=== PATIENT | male | born 1930 | race Caucasian/White ===

== ENCOUNTER 2017-05-09 14:43 | Observation (INO) | payer MEDICARE ==
[~2017-05-09] VITALS: Ht 167.6 cm; Wt 85.8 kg
[2017-05-09] MEDS ORDERED: SODIUM CHLORIDE 0.9% 1000ML 1,000 ML IV STA (15:11)
[2017-05-09 15:37] LABS: BASOPHILS % 0.2 % (0.0-1.0); EOSINOPHILS % 0.2 % (0.0-6.0); HEMATOCRIT 36.2 % (38.2-49.6); HEMOGLOBIN 12.6 g/dL (14.0-18.0); LYMPHOCYTES # (AUTO) 0.9 (1.0-3.2); LYMPHOCYTES % 18.2 % (18.0-39.1); MEAN CORPUSCULAR HGB CONC 34.8 g/dL (31-35); MEAN CORPUSCULAR VOLUME 88.9 fL (81-99); MONOCYTES # (AUTO) 0.5 (0.2-0.8); MONOCYTES % 10.6 % (4.4-11.3); NEUTROPHILS # (AUTO) 3.6 (2.1-6.9); NEUTROPHILS % 70.2 % (38.7-80.0); PLATELET COUNT 222 x10e3/uL (140-360); RED BLOOD COUNT 4.07 x10e6/uL (4.3-5.7); RED CELL DISTRIBUTION WIDTH 14.1 % (11.7-14.4)
[2017-05-09 15:47] LABS: INR 0.87; PROTHROMBIN TIME 12.3 seconds (11.9-14.5)
[2017-05-09 15:48] LABS: PARTIAL THROMBOPLASTIN TIME 37.5 seconds (23.8-35.5)
--- NOTE | 2017-05-09 15:56 | Diagnostic Imaging Report ---
EXAM: XR CHEST 1 VIEW DATE: 05/09/2017 3:11 PM INDICATION: Cough COMPARISON: None FINDINGS: Lines and Tubes: None Heart and Mediastinum: Aortic vascular calcifications. Hilar fullness. Tortuosity descending thoracic aorta. Lungs and Pleura: Patchy opacities lung bases. Apical scarring. Bones and Soft Tissues: No acute findings. IMPRESSION: 1. Asymmetric to left basilar opacities could represent atelectasis or pneumonia. 2. Hilar prominence which could represent adenopathy or prominent pulmonary arteries. Follow-up radiograph after resolution of acute symptoms. CT could be obtained for further evaluation if needed. Signed by: Dr. Tadeo Benítez MD on 05/09/2017 3:53 PM
[2017-05-09 15:57] LABS: ALBUMIN 2.9 g/dL (3.5-5.0); ALBUMIN/GLOBULIN RATIO 0.7 (0.8-2.0); ANION GAP 16.2 mmol/L (8-16); CALCIUM 8.8 mg/dL (8.4-10.2); CREATININE, SERUM 1.68 mg/dL (0.72-1.25); POTASSIUM 4.2 mmol/L (3.5-5.1)
[2017-05-09 16:04] LABS: CREATINE KINASE MB 2.4 ng/mL (0.00-5.00); TROPONIN I 0.013 ng/mL (0-0.300)
--- NOTE | 2017-05-09 16:10 | Diagnostic Imaging Report ---
EXAMINATION: Head CT HISTORY: Status post fall, head trauma, laceration to the left temporal region COMPARISON: None. TECHNIQUE: Multidetector axial images were obtained without contrast from the foramen magnum to the vertex . The images were reconstructed using brain and bone algorithms. Thin section brain images were reformatted into coronal and sagittal planes. Intravenous contrast: None. Motion/streaking artifact limits the evaluation of the skull base and posterior cranial fossa. FINDINGS: Parenchyma: 1. Asymmetry of the insula, with mild volume loss on the left insula and possible cortical/subcortical encephalomalacia/gliosis, perhaps sequela from remote insult such as trauma, ischemia or inflammation, versus a variation of the anatomy. 2. No mass or hemorrhage. No CT evidence of acute territorial vascular insult. Extra-axial spaces:No abnormal density. No extra-axial fluid collections Brain volume: Normal for age. Ventricles: No hydrocephalus or displacement. Arteries: No density suggestive of thrombus. Dural sinuses: No abnormal density. Extra-axial spaces: No abnormal density. Foramen magnum: No mass, Chiari malformation, or basilar invagination. Sella: No obvious mass. Paranasal/mastoid sinuses: Mucosal inflammatory thickening and partial opacification with a small air-fluid levels in the left greater than right sphenoid sinuses. Mild mucosal inflammatory thickening of the bilateral ethmoidal and partially visualized maxillary sinuses. Skull/Scalp: No lytic or blastic lesions. No fractures. IMPRESSION: 1. No acute posttraumatic intracranial abnormalities, particularly no hemorrhage. 2. No acute displaced fractures. 3. Partially visualized mucosal inflammatory thickening of the paranasal sinuses. Signed by: Dr. Inessa Boykin M.D. on 05/09/2017 4:06 PM
[2017-05-09] MEDS ORDERED: MORPHINE SULFATE 2 MG/ML SYR IV STA (16:44)
[2017-05-09] MEDS ORDERED: ONDANSETRON HCL INJ 2 MG/ML VIAL IV STA (16:44)
[2017-05-09 18:07] LABS: BILIRUBIN,URINE NEGATIVE (NEGATIVE); CLARITY,URINE SL CLOUDY (CLEAR); COLOR,URINE RED (YELLOW); KETONES,URINE NEGATIVE (NEGATIVE); LEUKOCYTE ESTERASE ,URINE 2+ (NEGATIVE); NITRITE,URINE NEGATIVE (NEGATIVE); PROTEIN,URINE DIPSTICK 1+ (NEGATIVE); URINE UROBILINOGEN 0.2 mg/dL (0.2 - 1)
[2017-05-09 18:14] LABS: BACTERIA,URINE RARE /HPF; EPITHELIAL CELLS,URINE FEW /LPF; RBC,URINE >50 /HPF (0-5)
[2017-05-09 18:15] LABS: AMORPHOUS SEDIMENT,URINE MODERATE (FEW)
[2017-05-09] MEDS ORDERED: CEFTRIAXONE SOD 1 GM VIAL IV ONE (18:30)
[2017-05-09] MEDS ORDERED: ONDANSETRON HCL INJ 2 MG/ML VIAL IV PRN (18:45)
[2017-05-09] MEDS ORDERED: CEFTRIAXONE SOD 1 GM VIAL IV SCH (18:45)
[2017-05-09] MEDS: SODIUM CHLORIDE 0.9% 1000ML 1,000 ML IV SCH (19:18)
[2017-05-09] MEDS: MORPHINE SULFATE 2 MG/ML SYR IV PRN (21:20)
[2017-05-09 23:26] LABS: CREATINE KINASE MB 2.7 ng/mL (0.00-5.00); TROPONIN I 0.015 ng/mL (0-0.300)
[2017-05-10 02:06] VITALS: BP 150/70
[2017-05-10] MEDS: SODIUM CHLORIDE 0.9% 1000ML 1,000 ML IV SCH (02:47)
[2017-05-10] MEDS ORDERED: DEXTROSE 50% SYRINGE 50 ML IV ONE (02:47)
[2017-05-10] MEDS ORDERED: DEXTROSE 50% SYRINGE 50 ML IV STA (02:52)
[2017-05-10] MEDS ORDERED: DEXTROSE 5%/0.45% SOD CHL 1,000 ML IV SCH (03:00)
[2017-05-10 04:00] VITALS: BP 150/73
[2017-05-10 04:22] VITALS: BP 150/70
[2017-05-10] MEDS: MORPHINE SULFATE 2 MG/ML SYR IV PRN (05:12)
[2017-05-10] MEDS ORDERED: ACETAMINOPHEN 325 MG TAB PO PRN (05:45)
[2017-05-10] MEDS ORDERED: LEVOFLOXACIN 500MG/D5W 100ML 100 ML IV ONE (06:00)
--- NOTE | 2017-05-10 06:33 | Diagnostic Imaging Report ---
EXAM: CHEST SINGLE (PORTABLE), AP 1 view DATE: 05/10/2017 7:00 AM Time stamp on exam: 0624 hours INDICATION: Pneumonia COMPARISON: AP view of the chest May 09, 2017 FINDINGS: LINES/TUBES: None LUNGS: Nonspecific bronchial thickening PLEURA: No effusions or pneumothorax. HEART AND MEDIASTINUM: Stable appearance BONES AND SOFT TISSUES: No acute findings. IMPRESSION: Nonspecific bronchial thickening Signed by: Dr. Romana Castro M.D. on 05/10/2017 6:30 AM
[2017-05-10 07:51] VITALS: BP 108/54
[2017-05-10 08:28] LABS: ANION GAP 11.7 mmol/L (8-16); CALCIUM 7.9 mg/dL (8.4-10.2); CREATININE, SERUM 1.57 mg/dL (0.72-1.25); POTASSIUM 3.7 mmol/L (3.5-5.1)
[2017-05-10 08:40] LABS: BASOPHILS % 0.2 % (0.0-1.0); HEMOGLOBIN 11.4 g/dL (14.0-18.0); LYMPHOCYTES # (AUTO) 0.2 (1.0-3.2); LYMPHOCYTES % 5.5 % (18.0-39.1); MEAN CORPUSCULAR HEMOGLOBIN 31.1 pg (28-32); MEAN CORPUSCULAR HGB CONC 34.5 g/dL (31-35); MEAN CORPUSCULAR VOLUME 89.9 fL (81-99); MONOCYTES # (AUTO) 0.1 (0.2-0.8); NEUTROPHILS # (AUTO) 3.9 (2.1-6.9); NEUTROPHILS % 90.6 % (38.7-80.0); PLATELET COUNT 182 x10e3/uL (140-360); RED BLOOD COUNT 3.67 x10e6/uL (4.3-5.7); RED CELL DISTRIBUTION WIDTH 14.5 % (11.7-14.4)
[2017-05-10 08:45] LABS: CREATINE KINASE MB 3.2 ng/mL (0.00-5.00); TROPONIN I 0.173 ng/mL (0-0.300)
[2017-05-10] MEDS ORDERED: AZITHROMYCIN 500MG/NS 250 ML 250 ML IV SCH (09:00)
[2017-05-10 11:43] VITALS: BP 127/68
== END 2017-05-10 12:25 | disposition left against medical advice (07) ==
LOC: ER 14:43 → ERHOLD 20:14 → IMCU 05-10 01:35
DX: J20.9 Acute bronchitis, unspecified (principal); R33.9 Retention of urine, unspecified; S01.81XA Laceration without foreign body of other part of head, initial encounter; S80.10XA Contusion of unspecified lower leg, initial encounter; W19.XXXA Unspecified fall, initial encounter; Y92.009 Unspecified place in unspecified non-institutional (private) residence as the place of occurrence of the external cause; I10 Essential (primary) hypertension; E78.5 Hyperlipidemia, unspecified; E11.9 Type 2 diabetes mellitus without complications; Z53.29 Procedure and treatment not carried out because of patient's decision for other reasons; K43.9 Ventral hernia without obstruction or gangrene; Z87.891 Personal history of nicotine dependence
CPT/HCPCS: 36415 ×2; 70450; 71010 ×2; 80048; 80053; 81001; 82550 ×2; 82553 ×2; 82948; 83605; 84484 ×2; 85025 ×2; 85610; 85730; 87040; 87086; 87186; 87400; 93005 ×2; 99284; G0378 ×2; J0456; J0696; J1956; J2270 ×2; J2405; J7030 ×2; J7799

== ENCOUNTER → 2017-07-06 | Outpatient (CLI) | payer MEDICARE ==
--- NOTE | 2017-07-06 10:43 | Diagnostic Imaging Report ---
PROCEDURE:US RETROPERITONEAL ( KIDNEY ). COMPARISON:None. INDICATIONS:UTI TECHNIQUE: Nash scale color Doppler ultrasound kidneys FINDINGS: Right: 12.5 x 3.8 x 5.3 cm. Cortical thickness 1.2 cm Left: 12.4 x 4.2 x 4.4 cm. Cortical thickness 1.4 cm Both kidneys demonstrate normal parenchymal echogenicity. The left kidney demonstrates a prominent extrarenal pelvis. Cysts: Right medial: 2.3 x 2.4 x 2.6 cm anechoic, simple. Right lateral: 2.3 x 1.7 x 1.9 cm anechoic, simple. Left mid: 5 x 4.4 x 5 cm anechoic, simple Left inferior: 3.3 x 2.3 x 3.3 cm anechoic, simple Survey views of the urinary bladder are normal. Ureteral jets present bilaterally. Prostate volume: 42 mL (4.6 x 4.1 x 4.2 cm) CONCLUSION: 1. Normal renal echogenicity. 2. Multiple simple renal cysts bilaterally. 3. Prominent left renal pelvis without evidence of ureteral obstruction. Likely an uncomplicated prominent extrarenal pelvis. Dictated by: Hieu Wong M.D. on 07/06/2017 at 10:43 Electronically approved by: Hieu Wong M.D. on 07/06/2017 at 10:43
== END ==
LOC: US 09:25
PROVIDERS: ATTEND Urology
DX: N39.0 Urinary tract infection, site not specified (principal)
CPT/HCPCS: 76770